=== PATIENT | male | born 1965 | race Hispanic/Latino ===

== ENCOUNTER 2017-10-03 17:06 | Emergency (ER) | payer MEDICAID, OTHER ==
[2017-10-03 17:06] VITALS: BMI 27.4
[2017-10-03 17:19] VITALS: TEMP 98.1; O2SAT 99
[2017-10-03 20:07] VITALS: BP 167/107; PULSE 97; RESP 18
--- NOTE | 2017-10-03 20:29 | ED PDOC ---
Arrival/HPI - General Historian: Patient EM Caveat: Acuity of Condition - History of Present Illness Time/Duration: Prior to Arrival Symptom Onset: Gradual Symptom Course: Unchanged Quality: Pressure, Tightness Severity Level: 5 Activities at Onset: Rest Context: Home <Sarah Schmidt - Last Filed: 10/04/17 00:04> <Binu Bullard - Last Filed: 10/04/17 02:56> - General Chief Complaint: Abnormal Skin Integrity Time Seen by Provider: 10/03/17 18:35 - History of Present Illness Narrative History of Present Illness (Text): 10/03/17 20:24 Pt is a 52 yo M complaining of swollen and cracked lips x 10 days. Reports that approx 20 days ago, pt was bit by a spider at night on his right ear that swelled up for a few days then resolved. 10 days later, he noticed his lips reddening and swelling with cracks at the corners. He reports having a new cat in the house x 1 month that sleeps on the bed, other than that, no new soaps, creams, foods, medications, or environmental factors. Denies dysphagia, cp, sob , headache, ACEI, or travel. (Sarah Schmidt) Past Medical History - Infectious Disease Hx of Infectious Diseases: None - Psychiatric Hx Substance Use: No - Anesthesia Hx Anesthesia: No <Sarah Schmidt - Last Filed: 10/04/17 00:04> Family/Social History - Physician Review Nursing Documentation Reviewed: Yes Family/Social History: Unknown Family HX Smoking Status: Current Some Days Smoker Hx Alcohol Use: Yes Hx Substance Use: No Hx Substance Use Treatment: No <Sarha Schmidt - Last Filed: 10/04/17 00:04> Allergies/Home Meds <Sarah Schmidt - Last Filed: 10/04/17 00:04> <Binu Bullard - Last Filed: 10/04/17 02:56> Allergies/Adverse Reactions: Allergies No Known Allergies Allergy (Verified 10/03/17 17:15) Review of Systems - Physician Review All systems were reviewed & negative as marked: Yes - Review of Systems Constitutional: Normal Eyes: Normal ENT: Normal Respiratory: Normal Cardiovascular: Normal Gastrointestinal: Normal Genitourinary Male: Normal Musculoskeletal: Normal Skin: Rash (swollen lips), Skin Lesions (cracks and sores on lips) Neurological: Normal Endocrine: Normal Hemo/Lymphatic: Normal Psychiatric: Normal <Sarah Schmidt - Last Filed: 10/04/17 00:04> Physical Exam Vital Signs Reviewed: Yes Temperature: Afebrile Blood Pressure: Normal Pulse: Regular Respiratory Rate: Normal Appearance: Positive for: Well-Appearing, Non-Toxic, Comfortable Pain Distress: None Mental Status: Positive for: Alert and Oriented X 3 - Systems Exam Head: Present: Atraumatic, Normocephalic Pupils: Present: PERRL Extroacular Muscles: Present: EOMI Conjunctiva: Present: Normal Mouth: Present: Moist Mucous Membranes, Normal Tounge, Normal Teeth, Other ( edema and fissures on lips and corners of mouth w yellow dc) Neck: Present: Normal Range of Motion Respiratory/Chest: Present: Clear to Auscultation, Good Air Exchange. No: Respiratory Distress, Accessory Muscle Use Cardiovascular: Present: Regular Rate and Rhythm, Normal S1, S2. No: Murmurs Abdomen: Present: Normal Bowel Sounds. No: Tenderness, Distention, Peritoneal Signs Back: Present: Normal Inspection Upper Extremity: Present: Normal Inspection. No: Cyanosis, Edema Lower Extremity: Present: Normal Inspection. No: Edema Neurological: Present: GCS=15, CN II-XII Intact, Speech Normal Skin: Present: Warm, Dry, Normal Color. No: Rashes Psychiatric: Present: Alert, Oriented x 3, Normal Insight, Normal Concentration <Sarah Schmidt - Last Filed: 10/04/17 00:04> Vital Signs Temp Pulse Resp BP Pulse Ox 10/03/17 20:06 97 H 18 167/107 H 99 10/03/17 17:18 98.1 F 94 H 16 177/100 H 99 Medical Decision Making - Lab Interpretations I have reviewed the lab results: Yes Interpretation: Abnormal lab values <Sarah Schmidt - Last Filed: 10/04/17 00:04> <Binu Bullard - Last Filed: 10/04/17 02:56> ED Course and Treatment: 10/03/17 20:29 Pt is a 52 yo M complaining of swollen and cracked lips x 10days. Plan: cbc w dff, CMP, Urinalysis assess and dispo home when stable Progress Note: Evaluated by Dr Bullard who advised abx ppx for Impetigo secondary to contact dermatitis apply vaseline to lips daily Dispo home w Keflex 500 mg q8 x 7 days. Only to be used if vaseline application fails to work and honey crusted lesions remain (Sarah Schmidt) - Lab Interpretations Lab Results: 10/03/17 20:58 10/03/17 20:58 Lab Results 10/03/17 20:58: Sodium 140, Potassium 4.0, Chloride 104, Carbon Dioxide 20 L, Anion Gap 20, BUN 10, Creatinine 0.8, Est GFR ( Amer) > 60, Est GFR (Non- Af Amer) > 60, Random Glucose 106, Calcium 10.1, Total Bilirubin 1.1, AST 59, ALT 74 H, Alkaline Phosphatase 83, Total Protein 8.6 H, Albumin 4.8, Globulin 3.8, Albumin/Globulin Ratio 1.3 10/03/17 20:58: Urine Color Yellow, Urine Appearance Clear, Urine pH 6.0, Ur Specific [place] >= 1.030, Urine Protein Trace H, Urine Glucose (UA) Negative, Urine Ketones 15 H, Urine Blood Negative, Urine Nitrate Negative, Urine Bilirubin Small H, Urine Urobilinogen 0.2, Ur Leukocyte Esterase Negative, Urine RBC Negative, Urine WBC 0 - 2, Ur Epithelial Cells 0 - 2, Urine Bacteria Few 10/03/17 20:58: WBC 11.9 H, RBC 4.59, Hgb 15.4, Hct 44.5, MCV 96.9, MCH 33.6, MCHC 34.6, RDW 12.2, Plt Count 357, MPV 9.8, Gran % 71.6 H, Lymph % (Auto) 17.0 L, [place] % (Auto) 10.1 H, Eos % (Auto) 1.0 L, Baso % (Auto) 0.3, Gran # 8.55 H, Lymph # (Auto) 2.0, [place] # (Auto) 1.2 H, Eos # (Auto) 0.1, Baso # (Auto) 0.03 - PA / STEREOTYPE FINISHER / Resident Statement MD/DO has reviewed & agrees with the documentation as recorded. <Binu Bullard - Last Filed: 10/04/17 02:56> Disposition/Present on Arrival - Present on Arrival Any Indicators Present on Arrival: Yes History of DVT/PE: No History of Uncontrolled Diabetes: No Urinary Catheter: No History of Decub. Ulcer: No History Surgical Site Infection Following: None - Disposition Have Diagnosis and Disposition been Completed?: Yes Disposition Time: 20:56 Patient Plan: Discharge <Sarah Schmidt Sarah - Last Filed: 10/04/17 00:04> <Binu Bullard - Last Filed: 10/04/17 02:56> - Disposition Diagnosis: Contact dermatitis Disposition: HOME/ ROUTINE Condition: GOOD Discharge Instructions (ExitCare): Cephalexin (By mouth), Impetigo (ED), Contact Dermatitis (ED) Additional Instructions: Dear Patient, You have been diagnosed with contact dermatitis that responds well to removal of the cause which may be a lip balm you used. Refrain from using this and apply vaseline only for the next week. If this fails to resolve and you continue to have yellow discharge, start taking the antibiotic you were prescribed. If you experience severe fever, pain, chest pain or shortness of breath of any other alarming symptoms, return to the emergency room immediately. Please follow up with your Primary Doctor in less than a week. All the best in your recover Prescriptions: Cephalexin [Keflex] 500 mg PO Q8 7 Days #21 capsule Referrals: PCP,NO [Primary Care Provider] - Follow up with primary Forms: [employer] ([place])
[2017-10-03 21:05] LABS: BASO # 0.03 K/mm3 (0.0-2.0); BASO % 0.3 % (0.0-3.0); EOS # 0.1 (0.0-0.7); GRAN # 8.55 (1.4-6.5); GRAN % 71.6 % (50.0-68.0); HEMOGLOBIN 15.4 g/dL (14.0-18.0); MEAN CELL VOLUME 96.9 fl (80.0-105.0); MEAN CORPUSCULAR HEMOGLOBIN 33.6 pg (25.0-35.0); MEAN CORPUSCULAR HGB CONC 34.6 g/dl (31.0-37.0); MEAN PLATELET VOLUME 9.8 fl (7.0-11.0); MONO # 1.2 (0.1-0.6); MONO % 10.1 % (1.0-6.0); RBC 4.59 10^6/uL (3.5-6.1); RED CELL DISTRIBUTION WIDTH 12.2 % (11.5-14.5); URINE BILIRUBIN SMALL (NEGATIVE); URINE BLOOD NEGATIVE (NEGATIVE); URINE GLUCOSE (UA) NEGATIVE (NEGATIVE); URINE LEUKOCYTE ESTERASE NEGATIVE Leu/uL (NEGATIVE); URINE NITRATE NEGATIVE (NEGATIVE); URINE PROTEIN TRACE mg/dL (<30 mg/dL); URINE UROBILINOGEN 0.2 E.U./dL (<1 E.U./dL); WHITE BLOOD COUNT 11.9 10^3/ul (4.5-11.0)
[2017-10-03 21:09] LABS: URINE APPEARANCE CLEAR (CLEAR); URINE COLOR YELLOW (YELLOW)
[2017-10-03 21:15] LABS: URINE BACTERIA FEW (NEG); URINE EPITHELIAL CELLS 0 - 2 /hpf (0-5); URINE RBC NEGATIVE /hpf (0-2); URINE WBC 0 - 2 /hpf (0-6)
[2017-10-03 21:16] LABS: ALB/GLOB RATIO 1.3 (1.1-1.8); ALBUMIN 4.8 g/dL (3.0-4.8); ALT/SGPT 74 U/L (7-56); AST/SGOT 59 U/L (17-59); BLOOD UREA NITROGEN 10 mg/dL (7-21); CALCIUM 10.1 mg/dL (8.4-10.5); GFR AFRICAN-AMERICAN > 60; GFR NON-AFRICAN AMERICAN > 60
== END 2017-10-03 21:31 | disposition home or self-care (01) ==
LOC: ED 17:06
DX: L25.9 Unspecified contact dermatitis, unspecified cause (principal)